=== PATIENT | male | born 1975 | race Hispanic/Latino ===

== ENCOUNTER 2019-04-06 00:47 | Emergency (ER) | payer SELFPAY ==
[2019-04-06 01:30] LABS: Absolute Lymphocytes (CBC) 2.5 K/uL (0.7-4.9); Hematocrit 40.2 % (39.6-49.0); Lymphocytes % 36.5 % (15.3-44.8); MPV 9.1 fL (7.6-11.3); RBC Red Blood Cell Count 4.39 M/uL (4.33-5.43)
[2019-04-06 01:31] LABS: Protime INR 0.96
[2019-04-06 01:43] LABS: ALT/SGPT 22 U/L (12-78); AST/SGOT 13 U/L (15-37); Albumin 3.8 g/dL (3.4-5.0); Alkaline Phosphatase 67 U/L (45-117); BUN Blood Urea Nitrogen 19 mg/dL (7-18); Bicarbonate 26 mmol/L (21-32); Bilirubin Direct < 0.1 mg/dL (0-0.2); Bilirubin Total 0.2 mg/dL (0.2-1.0); Glucose Level 108 mg/dL (74-106); NT PRO-BNP 31 pg/mL (<125); Potassium 3.6 mmol/L (3.5-5.1); Sodium Level 143 mmol/L (136-145); Troponin (Emerg Dept Use Only) < 0.02 ng/mL (0.0-0.045)
--- NOTE | 2019-04-06 02:20 | EDPHYS ---
Physician Documentation [facility] Name: Feliberto Smyth Age: 43 yrs Sex: Male : 1975 Arrival Date: 04/06/2019 Time: 00:50 Bed 6 Private MD: ED Physician Dionicio Luque HPI: 04/06 01:27 This 43 yrs old Male presents to ER via Ambulatory with complaints of Chest jr8 Tightness/Shortness of breath. 01:27 The patient has shortness of breath at rest. Onset: The symptoms/episode began/occurred jr8 gradually, 2 day(s) ago. Duration: The symptoms are continuous. The patient's shortness of breath has no apparent modifying factors. Associated signs and symptoms: Pertinent positives: non-productive cough, fever. Severity of symptoms: At their worst the symptoms were mild in the emergency department the symptoms are unchanged. The patient has not experienced similar symptoms in the past. The patient has not recently seen a physician. - Immunization history:: Adult Immunizations up to date. - Social history:: Smoking status: Patient/guardian denies using tobacco. - Ebola Screening: : No symptoms or risks identified at this time. ROS: 01:27 Constitutional: Positive for fever, malaise. jr8 01:27 Cardiovascular: Positive for chest pain, Negative for edema, orthopnea, palpitations, paroxysmal nocturnal dyspnea. 01:27 Respiratory: Positive for cough. 01:27 All other systems are negative. Exam: 01:27 Eyes: Pupils equal round and reactive to light, extra-ocular motions intact. Lids and jr8 lashes normal. Conjunctiva and sclera are non-icteric and not injected. Cornea within normal limits. Periorbital areas with no swelling, redness, or edema. ENT: Nares patent. No nasal discharge, no septal abnormalities noted. Tympanic membranes are normal and external auditory canals are clear. Oropharynx with no redness, swelling, or masses, exudates, or evidence of obstruction, uvula midline. Mucous membranes moist. Neck: Trachea midline, no thyromegaly or masses palpated, and no cervical lymphadenopathy. Supple, full range of motion without nuchal rigidity, or vertebral point tenderness. No Meningismus. Cardiovascular: Regular rate and rhythm with a normal S1 and S2. No gallops, murmurs, or rubs. Normal PMI, no JVD. No pulse deficits. Respiratory: Lungs have equal breath sounds bilaterally, clear to auscultation and percussion. No rales, rhonchi or wheezes noted. No increased work of breathing, no retractions or nasal flaring. Abdomen/GI: Soft, non-tender, with normal bowel sounds. No distension or tympany. No guarding or rebound. No evidence of tenderness throughout. Back: No spinal tenderness. No costovertebral tenderness. Full range of motion. Skin: Warm, dry with normal turgor. Normal color with no rashes, no lesions, and no evidence of cellulitis. MS/ Extremity: Pulses equal, no cyanosis. Neurovascular intact. Full, normal range of motion. Neuro: Awake and alert, GCS 15, oriented to person, place, time, and situation. Cranial nerves II-XII grossly intact. Motor strength 5/5 in all extremities. Sensory grossly intact. Cerebellar exam normal. Normal gait. Vital Signs: 01:00 BP 136 / 95; Pulse 93; Resp 18; Temp 98.3; Pulse Ox 98% ; Weight 72.57 kg; Height 5 ft. ea 2 in. (157.48 cm); 02:00 BP 139 / 85; Pulse 93; Resp 17; Pulse Ox 97% on R/A; rv 02:34 BP 114 / 63; Pulse 84; Resp 15; Pulse Ox 96% ; rv 01:00 Body Mass Index 29.26 (72.57 kg, 157.48 cm) ea MDM: 00:52 Patient medically screened. jr8 02:18 Data reviewed: vital signs, nurses notes, lab test result(s), EKG, radiologic studies, jr8 plain films. Data interpreted: Pulse oximetry: on room air is 98 %. Interpretation: normal. Counseling: I had a detailed discussion with the patient and/or guardian regarding: the historical points, exam findings, and any diagnostic results supporting the discharge/admit diagnosis, lab results, radiology results, the need for outpatient follow up, a family practitioner, to return to the emergency department if symptoms worsen or persist or if there are any questions or concerns that arise at home. 02:19 ED course: Patient was running low grade fever here. Has had pain with cough and jr8 congestion. Most likely URI/Bronchitis. No acute cardiopulmonary process seen at this time. Recommended f/u in next couple of days. Patient good with plan . 04/06 00:52 Order name: Basic Metabolic Panel 04/06 00:52 Order name: CBC with Diff; Complete Time: 01:39 04/06 00:52 Order name: LFT's 04/06 00:52 Order name: Magnesium; Complete Time: 01:54 04/06 00:52 Order name: NT PRO-BNP; Complete Time: 01:54 04/06 00:52 Order name: PT-INR; Complete Time: 01:39 04/06 00:52 Order name: Troponin (emerg Dept Use Only); Complete Time: 01:54 04/06 00:52 Order name: XRAY Chest (1 view) 04/06 00:52 Order name: EKG; Complete Time: 00:53 04/06 00:52 Order name: Cardiac monitoring; Complete Time: 01:04 04/06 00:52 Order name: EKG - Nurse/Tech; Complete Time: :04 04/06 00:53 Order name: Basic Metabolic Panel; Complete Time: 01:54 EDMS 04/06 00:53 Order name: Liver (Hepatic) Function; Complete Time: 01:54 EDMS 04/06 01:08 Order name: Flu; Complete Time: 02:12 ea 04/06 00:52 Order name: IV Saline Lock; Complete Time: :04 04/06 00:52 Order name: Labs collected and sent; Complete Time: :04 04/06 00:52 Order name: O2 Per Protocol; Complete Time: :04/06 00:52 Order name: O2 Sat Monitoring; Complete Time: 01: Administered Medications: No medications were administered Disposition: 05:45 Co-signature as Attending Physician, Dionicio Luque MD I agree with the assessment and 4 plan of care. Disposition: 04/06/19 02:19 Discharged to Home. Impression: Acute upper respiratory infection, unspecified. - Condition is Stable. - Discharge Instructions: Upper Respiratory Infection, Adult. - Prescriptions for Prednisone 20 mg Oral Tablet - take 1 tablet by ORAL route once daily for 5 days; 5 tablet. Albuterol Sulfate 90 mcg/actuation - inhale 1-2 puff by INHALATION route every 4-6 hours; 1 Inhaler. Guaifenesin AC 10- 100 mg/5 mL Oral Liquid - take 10 milliliter by ORAL route every 4 hours As needed; 240 milliliter. - Medication Reconciliation Form, Thank You Letter, Antibiotic Education, Prescription Opioid Use form. - Follow up: Private Physician; When: 2 - 3 days; Reason: Recheck today's complaints, Continuance of care, Re-evaluation by your physician. - Problem is new. - Symptoms have improved. Signatures: Dispatcher [employer] EDMS Aj Scott PA PA jr8 Carisa Calero, RN RN Dionicio Zhang MD MD tw4 Rya Liriano RN RN rv Corrections: (The following items were deleted from the chart) 02:36 02:19 04/06/2019 02:19 Discharged to Home. Impression: Acute upper respiratory rv infection, unspecified. Condition is Stable. Forms are Medication Reconciliation Form, Thank You Letter, Antibiotic Education, Prescription Opioid Use. Follow up: Private Physician; When: 2 - 3 days; Reason: Recheck today's complaints, Continuance of care, Re-evaluation by your physician. Problem is new. Symptoms have improved. jr8
--- NOTE | 2019-04-06 02:20 | ER ---
Nurse's Notes [facility] Name: Feliberto Smyth Age: 43 yrs Sex: Male : 1975 Arrival Date: 04/06/2019 Time: 00:50 Bed 6 Private MD: Diagnosis: Acute upper respiratory infection, unspecified Presentation: 04/06 00:57 Presenting complaint: Patient states: Reports cough, congestion, body aches, chills and ea sore throat for the past three days. Transition of care: patient was not received from another setting of care. Onset of symptoms was April 06, 2019. Risk Assessment: Do you want to hurt yourself or someone else? Patient reports no desire to harm self or others. Initial Sepsis Screen: Does the patient meet any 2 criteria? No. Patient's initial sepsis screen is negative. Does the patient have a suspected source of infection? No. Patient's initial sepsis screen is negative. Care prior to arrival: Medication(s) given: NyQuil. 00:57 Method Of Arrival: Ambulatory ea 00:57 Acuity: BERNARDO 3 ea Triage Assessment: 01:03 General: Appears uncomfortable, Behavior is calm, cooperative, appropriate for age. ea Pain: Complains of pain in chest. Neuro: Level of Consciousness is awake, alert, obeys commands, Oriented to person, place, time, situation. Cardiovascular: Patient's skin is warm and dry. Respiratory: Airway is patent Respiratory effort is even, unlabored, Respiratory pattern is regular, symmetrical. Derm: Skin is pink, warm \T\ dry. - Immunization history:: Adult Immunizations up to date. - Social history:: Smoking status: Patient/guardian denies using tobacco. - Ebola Screening: : No symptoms or risks identified at this time. Screenin:01 Abuse screen: Denies threats or abuse. Nutritional screening: No deficits noted. ea Tuberculosis screening: No symptoms or risk factors identified. Fall Risk None identified. Assessment: 01:00 General: Appears in no apparent distress. rv 01:00 Pain: Complains of pain in chest. Pain: Pain does not radiate. Pain began suddenly. rv Neuro: Level of Consciousness is awake, alert, obeys commands, Oriented to person, place, time, situation. Cardiovascular: Rhythm is regular. Respiratory: Airway is patent. Derm: Skin is intact. Vital Signs: 01:00 BP 136 / 95; Pulse 93; Resp 18; Temp 98.3; Pulse Ox 98% ; Weight 72.57 kg; Height 5 ft. ea 2 in. (157.48 cm); 02:00 BP 139 / 85; Pulse 93; Resp 17; Pulse Ox 97% on R/A; rv 02:34 BP 114 / 63; Pulse 84; Resp 15; Pulse Ox 96% ; rv 01:00 Body Mass Index 29.26 (72.57 kg, 157.48 cm) ea ED Course: 00:50 Patient arrived in ED. cl3 00:51 Ray Liriano, RN is Primary Nurse. rv 00:52 Aj Scott PA is PHCP. jr8 00:52 Dionicio Luque MD is Attending Physician. jr8 01:00 Triage completed. ea 01:02 Patient has correct armband on for positive identification. Placed in gown. Bed in low ea position. Call light in reach. Side rails up X 1. court monitor on. 01:02 Patient maintains SpO2 saturation greater than 95% on room air. ea 01:04 Initial lab(s) drawn, by ca, sent to lab. Inserted saline lock: 18 gauge in right rv forearm, using aseptic technique. Blood collected. 01:05 Arm band placed on right wrist. Patient placed in an exam room, on a stretcher, on ea pulse oximetry. 01:10 XRAY Chest (1 view) In Process Unspecified. EDMS 02:36 No provider procedures requiring assistance completed. IV discontinued, intact, rv bleeding controlled, No redness/swelling at site. Pressure dressing applied. Administered Medications: No medications were administered Outcome: 02:19 Discharge ordered by . jr8 02:36 Discharged to home ambulatory. rv 02:36 Condition: good 02:36 Discharge instructions given to patient, Instructed on discharge instructions, follow up and referral plans. medication usage, Demonstrated understanding of instructions, follow-up care, medications, Prescriptions given X 3. 02:36 Patient left the ED. rv Signatures: Dispatcher [employer] EDCT Aj Scott PA PA jr8 Carisa Calero RN RN ea Vicente, Ronaldo, Tammy York RN cl3
--- NOTE | 2019-04-06 07:44 | EKG ---
Test Date: 2019-04-06 Test Time: 00:57:53 Entry Level Business Analyst: RV MEASUREMENT RESULTS: Intervals: Rate: 90 AR: 160 QRSD: 80 QT: 344 QTc: 420 [place]: P: 63 AR: 160 QRS: 31 T: 51 INTERPRETIVE STATEMENTS: Normal sinus rhythm Normal ECG No previous ECG available for comparison Electronically Signed On 04-06-19 07:43:13 AREA LOSS PREVENTION MANAGER by Yobany Thayer
[2019-04-06 08:06] VITALS: TEMP 98.3
[2019-04-06 08:09] VITALS: BP 114/63; O2SAT 96
--- NOTE | 2019-04-06 08:42 | RAD REPORT ---
EXAM DESCRIPTION: RAD - Chest Single View - 04/06/2019 1:09 am CLINICAL HISTORY: CHEST PAIN Chest pain. COMPARISON: No comparisons FINDINGS: Portable technique limits examination quality. The lungs are grossly clear. The heart is normal in size. No displaced fractures. IMPRESSION: No acute intrathoracic process suspected.
== END 2019-04-06 02:36 | disposition home or self-care (01) ==
LOC: ER 00:47
DX: J06.9 Acute upper respiratory infection, unspecified (principal)
CPT/HCPCS: 36415; 71045; 80048; 80076; 83735; 83880; 84484; 85025; 85610; 87804; 93005; 99285